=== PATIENT | female | born 1940 | race Caucasian/White ===

== ENCOUNTER 2020-12-16 07:28 | Day surgery (SDC) | payer OTHER ==
[2020-12-15 16:32] LABS: Basophils % 0.8 % (0-1.3); Hematocrit 37.9 % (36.0-45.0); Lymphocytes % 16.2 % (15.3-44.8); MPV 8.1 fL (7.6-11.3); RBC Red Blood Cell Count 4.15 M/uL (3.86-4.86)
[2020-12-15 16:46] LABS: Potassium 4.2 mmol/L (3.5-5.1)
--- NOTE | 2020-12-15 16:52 | RAD REPORT ---
EXAM DESCRIPTION: Bob Brooks And Elina (2 Views)12/15/2020 4:17 pm CLINICAL HISTORY: Preop secondary to hernia repair COMPARISON: None FINDINGS: Calcified granuloma right lung. The lungs appear clear of acute infiltrate. The heart is normal size IMPRESSION: No acute abnormalities displayed
[2020-12-16] MEDS ORDERED: propofoL 200 MG/20 ML VIAL IV ONE (08:03)
[2020-12-16] MEDS ORDERED: FENTANYL CITR 100 MCG/2 ML ONE ×2 (08:03→09:42)
[2020-12-16] MEDS ORDERED: ROCURONIUM 50 MG/5 ML VIAL IV ONE (08:04)
[2020-12-16] MEDS ORDERED: ONDANSETRON 4 MG/2 ML VIAL ONE (08:04)
[2020-12-16] MEDS ORDERED: dexAMETHasone 10 MG/ML VIAL ONE (08:04)
[2020-12-16] MEDS ORDERED: LIDOCAINE 1% MPF 2 ML AMPULE ONE (08:04)
[2020-12-16] MEDS ORDERED: NA CHLORIDE 0.9% 1,000 ML ONE ×2 (08:17→10:59)
[2020-12-16] MEDS ORDERED: CEFAZOLIN/SWI 1gm 1 GM/10 ML SYR ONE (08:17)
[2020-12-16] MEDS ORDERED: MIDAZOLAM HCL 2 MG/2 ML INJ ONE (08:29)
[2020-12-16] MEDS ORDERED: KETOROLAC 30 MG/ML INJ ONE (09:24)
--- NOTE | 2020-12-16 10:09 | P.BOP ---
Preoperative diagnosis: bilateral tender inguinal hernias Postoperative diagnosis: same Primary procedure: 1. Open repair of tender Right inguinal hernia with mesh Secondary procedure: 2. Open repair of tender Left inguinal hernia with mesh Estimated blood loss: <10cc Specimen: none Findings: bilat inguinal hernias, no metal use, pt has no poblem with sterile strips Anesthesia: General Complications: None Implants: mesh sheet and plug ( Left Large, Right medium) Transferred to: Recovery Room Condition: Good
[2020-12-16] MEDS ORDERED: EPHEDRINE SULF 50 MG/ML VIAL ONE (10:18)
[2020-12-16 10:47] VITALS: O2SAT 100
--- NOTE | 2020-12-16 11:07 | DS ---
Diagnosis: Bilateral tender inguinal hernias. Procedures: Open repair of bilateral inguinal hernias with mesh. Disposition: Home. Activity: As tolerated. No heavy lifting. Plan: Follow up in my office in 1 week. Call for appointment at [phone]. Keep area dry for 48 shona rs, then may shower. Keep Steri-Strip intact. Medication includes Tylenol No.3 q.4 hours p.r.n. mikayla n. Cold compress to the bilateral inguinal regions for 24 hours. NAZ/NATHANAEL Voice ID: [id number] Report ID: [id number]
--- NOTE | 2020-12-16 11:13 | OP ---
Date of Procedure: 12/16/2020 Surgeon: Everardo Benson MD Preoperative Diagnosis: Tender bilateral inguinal hernias. Postoperative Diagnosis: Tender bilateral inguinal hernias. Procedures: 1.Open repair of tender right inguinal hernia with mesh. 2.Open repair of tender left inguinal hernia with mesh. Findings: Bilateral inguinal hernias. This patient states she has allergies to titanium and other m etals. So, she preferred not to have los or clips during the surgery and that was done. Even th ough, she has adhesive issues, she has no problems with Steri-Strips and that was used to close incis ion. Anesthesia: General plus local. Indications: This is the case of an 80-year-old patient, comes to us with bilateral tender inguinal hernias. It is becoming more difficult for her to push it back. Sometimes, she cannot even do it at al so she wants that repaired. Benefits, alternatives, and risks of repair of bilateral inguinal he rnias were fully explained, which include, but not limited to infection, bleeding, damage to adjacent structures, anesthesia complication, chronic pain, chronic numbness, AR, and even . She also u nderstands the chance of recurrence. She understands this may not relieve any symptoms. She might n eed more than one surgical intervention. She understands we are going to use mesh in that area. Pro s and cons of mesh placement were discussed with the patient. All the questions were answered to her satisfaction. She signed a consent. The patient selected [facility] to undergo surgery af ter allowed to select hospital of the area. Procedure In Detail: The patient was brought to the operating room, placed supine position. Anesthe annmarie was done without complication. A time-out was called. Bilateral inguinal regions were prepped a nd draped in sterile fashion. Local anesthesia was applied. We first started with the left side. I ncision was made in that area. Incision was carried down to Bernabe fascia, which was opened under di rect vision. Incision was carried down to the external oblique aponeurosis. We opened in direction of the fibers to connect to the superficial inguinal ring. The ilioinguinal nerve and iliohypogastri c nerve protected behind the external oblique aponeurosis. We newly noticed the patient to have the inguinal hernia, so we proceeded to reduce the hernia sac and imbricated, and then put a mesh plug in that region and secured in place with 2-0 Prolene in multiple locations. Then, we put a mesh sheet on the right inguinal region, securing that to the pubic tubercle and sewing this with 2-0 Prolene to the shelving edge of the inguinal ligament and transversalis fascia. The area was irrigated. Hemos tasis was obtained. We proceeded to reconstruct a superficial inguinal ring and close the external o blique aponeurosis with a 2-0 Prolene. The Bernabe fascia was closed with 3-0 chromic and the skin wi th a 4-0 PDS. Sponge count and instrument counts correct. We repaired the left side using the same technique, except the mesh that we used in the area instead of large is medium size. The patient nicki erated both procedures well. Sponge count and instrument counts correct. The patient is on her way to recovery in stable condition. NAZ/NATHANAEL Voice ID: [id number] Report ID: [id number]
[2020-12-16] MEDS ORDERED: HYDROCODONE/APAP 5/325 MG TAB ONE (12:01)
[2020-12-16 12:31] VITALS: BP 152/76; TEMP 96.1
== END 2020-12-16 12:05 | disposition home or self-care (01) ==
LOC: OR 07:28
PROVIDERS: ATTEND Surgery
PROC: 0YUA0JZ Supplement Bilateral Inguinal Region with Synthetic Substitute, Open Approach (ICD-10-PCS; principal; 2020-12-16 08:30)
DX: K40.20 Bilateral inguinal hernia, without obstruction or gangrene, not specified as recurrent (principal); Z20.822 Contact with and (suspected) exposure to COVID-19
CPT/HCPCS: 93005; 85025; 80048; 36415; 82947 ×2; 71046; 49505; U0003; J2704; J2250; J3010 ×2; J2001; J0690; J7030 ×2; J2405; J1100